=== PATIENT | female | born 2005 | race Two or more races ===

== ENCOUNTER 2024-07-03 17:41 | Inpatient (IN) ==
--- NOTE | 2024-07-03 18:01 | Emergency Department Note ---
Impression & Plan Suicidal ideation, Depression ED Provider Note NAME: ROMI ADAIR AGE: 18 SEX: F : 2005 ARRIVES VIA: [employer] INFORMANT: Patient ED PROVIDER(S): Mason Huynh DO CHIEF COMPLAINT: SI HPI: Patient is a 18-year-old female who presents the ER from [facility] for suicidal ideations. She notes that since the age of [age] she does have passive suicidal thoughts nearly daily. 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 She notes that she thinks of this when she becomes stressed out. She denies any auditory or visual hallucinations. She has not been going to classes for the past month that she cannot make her self go. She has been falling behind in all of her schoolwork. She denies any chest pain or shortness of breath. No dysuria, urgency, or frequency. No other exacerbating or remitting factors. ADDITIONAL HISTORY OBTAINED: Per HPI Chronic Medical/Social Conditions Affecting Care: Per HPI PAST MEDICAL HISTORY:See Below PAST SURGICAL HISTORY:See Below FAMILY HISTORY:See Below SOCIAL HISTORY:See Below HOME MEDICATIONS:See Below ALLERGIES:See Below VITALS:See Below PHYSICAL EXAMINATION: GENERAL: Sitting up in bed, alert, well appearing, well nourished, no distress, non-toxic EYE EXAM: normal conjunctiva. PERRL and EOM's grossly intact. OROPHARYNX: no exudate, no erythema, lips, buccal mucosa, and tongue normal and mucous membranes are moist NECK: supple, no nuchal rigidity, no adenopathy, non-tender LUNGS: Clear to auscultation. Normal chest wall mechanics HEART: no murmurs, S1 normal and S2 normal ABDOMEN: abdomen soft, non-tender, normo-active bowel sounds, no masses, no rebound or guarding. UPPER EXTREMITIES: upper extremities are grossly normal. LOWER EXTREMITIES: No pitting edema. NEURO EXAM: Normal sensorium, cranial nerves II-XII grossly intact, normal speech, no gross weakness of arms, no gross weakness of legs. PSYCH: Patient admits to passive suicidal thoughts with intermittent plans. Denies any auditory visual hallucinations. MEDICAL DECISION MAKING: Patient is a 18-year-old female who presents ER for suicidal ideations. Labs were obtained and showed no significant leukocytosis or anemia. BMP along LFTs bilirubin is unremarkable. TSH unremarkable. UA was clean. negative. Viral panel was negative. Alcohol negative. COVID-negative. Discussed with our psychiatric personal care aid. Referrals made to 3 S. Patient was accepted and admitted on the [facility]-3 S. for suicidal ideations. Consults/Care Managements Discussions: Per MDM Triage Nursing notes reviewed. Limited review of prior medical records performed Vital Signs: reviewed and remarkable for no significant abnormalities Differential diagnosis: Mood disorder, infection, hypoglycemia, electrolyte abnormalities, cardiac sources, intracerebral event, toxicologic, trauma, neurologic, as well as other pathologies. ER treatment provided: See below Diagnostics interpreted by me include EKG and cardiac monitoring as listed below: -ECG: none -Laboratory studies:Interpreted by me as stated above in MDM and shown below. Imaging studies: Xrays: As interpreted by me:none CTs show: none Procedures:none Critical Care: None Past Med/Surg History Problem List (Updated 07/03/24 @ 23:25 by Mason Huynh DO) Depression (Acute) Suicidal ideation (Acute) Social History Smoking Status: Never smoker Hx Alcohol Use: Yes Hx Substance Use: Yes Preferred Language: [place] Communication Ability: Effective Electrician Outside Required: No Beliefs That Will Affect Care: None Feels Safe at Home: Yes Gender Identity: Nonbinary Assistive Devices: None Allergies Allergies Allergy/AdvReac Type Severity Reaction Status Date / Time No Known Allergies Allergy Unverified 04/17/22 20:13 Home Meds Home Medications Medication Instructions Recorded Confirmed sertraline 100 mg tablet 100 mg PO 1XD 07/03/24 07/03/24 Results & Data (ED) Vital Signs Vital Signs - 24 hr 07/03/24 17:43 07/03/24 17:46 07/03/24 19:03 Temperature 36.9 C Temperature Source Oral Pulse Rate [Right Finger] 90 70 Pulse Rhythm [Right Finger] Regular Pulse Strength [Right Finger] Normal Respiratory Rate 18 16 Respiratory Effort / Characteristics Non-Labored Spontaneous Non-Labored Spontaneous Respiratory Depth Normal Normal Respiratory Pattern Regular Regular Blood Pressure [Right Arm] 104/69 110/72 Blood Pressure Mean [Right Arm] 80 84 Blood Pressure Position [Right Arm] Lying Pulse Oximetry 95 99 Oxygen Delivery Method Room Air Room Air Sepsis Recent Fever Within 48 Hours No Sepsis New/Unexplained Change in Mental Status No Sepsis Action Taken by Nursing No Action Required Laboratory Data 07/03/24 17:50 07/03/24 17:50 Lab Results 07/03/24 07/03/24 07/03/24 Range/Units 17:50 17:51 18:03 WBC 5.37 (4.8-10.8) K/ul RBC 5.48 H (4.20-5.40) M/uL Hgb 14.9 (12.0-16.0) g/dl Hct 45.4 (37.0-47.0) % MCV 82.8 (80.0-100.0) fL MCH 27.2 (25.0-34.0) pg MCHC 32.8 (32.0-36.0) g/dL RDW Std Deviation 40.0 (36.4-46.3) fL RDW Coeff of Fern 13.2 (11.5-14.5) % Plt Count 336 (130-400) K/uL MPV 9.7 (9.4-12.4) fL Immature Gran % (Auto) 0.2 % Neut % (Auto) 55.9 % Lymph % (Auto) 30.4 % [place] % (Auto) 6.1 % Eos % (Auto) 6.3 % Baso % (Auto) 1.1 % Neut # (Auto) 3.00 (1.40-6.50) K/uL Lymph # (Auto) 1.63 (1.20-3.40) K/uL [place] # (Auto) 0.33 (0.11-0.59) K/uL Eos # (Auto) 0.34 (0.00-0.50) K/uL Baso # (Auto) 0.06 (0.00-0.20) K/uL Immature Gran # (Auto) 0.01 (0.01-0.20) K/uL Sodium 138 (136-145) mmol/L Potassium 4.5 (3.5-5.1) mmol/L Chloride 104 (98-107) mmol/L Carbon Dioxide 27 (21-32) mmol/L Anion Gap 7 (3-11) BUN 7 (6-23) mg/dl Creatinine 0.65 (0.6-1.2) mg/dl Est Cr Clr Drug Dosing 89.1 ml/min eGFR 129.18 BUN/Creatinine Ratio 10.8 (10-20) Glucose 88 (70-99(Fasting)) mg/dl Calcium 10.0 (8.6-10.3) mg/dl Total Bilirubin 0.5 (0.2-1.0) mg/dl AST 18 (13-39) U/L ALT 6 L (7-52) U/L Alkaline Phosphatase 43 (34-104) U/L Total Protein 7.6 (6.0-8.3) gm/dl Albumin 5.2 H (3.4-5.0) gm/dl Globulin 2.4 L (2.5-4.0) gm/dl Albumin/Globulin Ratio 2.2 H (0.9-2) TSH 1.133 (0.300-4.500) uIu/ml Urine Color Yellow Urine Appearance Clear (Clear) Urine pH 8.5 H (4.5-7.5) Ur Specific [place] 1.019 (1.000-1.030) Urine Protein Negative (Negative) Urine Glucose (UA) Negative (Negative) Urine Ketones Trace H (Negative) Urine Blood Negative (Negative) Urine Nitrite Negative (Negative) Urine Bilirubin Negative (Negative) Urine Urobilinogen Negative (Negative) Ur Leukocyte Esterase Negative (Negative) POC Ur Test NEG (NEG) Salicylates < 3.0 L (3.0-30) mg/dl Urine Opiates Screen Neg (Neg) Ur Methadone, Qual Neg (Neg) Urine Fentanyl Screen Neg (Neg) Acetaminophen < 3 L (10-30) ug/ml Urine Barbiturates Neg (Neg) Ur Phencyclidine (PCP) Neg (Neg) U Amphetamin/Meth Scrn Neg (Neg) MDMA (Ecstasy) Screen Neg (Neg) U Benzodiazepines Scrn Neg (Neg) Ur Cocaine Metabolite Neg (Neg) U Marijuana (THC) Screen Neg (Neg) Ethyl Alcohol mg/dL < 10.0 (<10.0) mg/dl SARS-CoV-2, RNA, NAAT NEGATIVE (NEGATIVE) Discharge Plan Visit Data Chief Complaint: Mental Health Evaluation Stated Complaint: 201 ED Provider: Mason Huynh Discharge Problem: Suicidal ideation, Depression Patient Disposition: Admitted As Inpatient Discharge Instructions Interventions: ED Discharge Assessment Last Done: 07/03/24 20:24
[2024-07-03 18:10] LABS: Appearance Urine Clear (Clear); Bilirubin Urine Negative (Negative); Blood Urine Negative (Negative); Color Urine Yellow; Glucose Urine UA Negative (Negative); Ketones Urine Trace (Negative); Leukocyte Esterase Urine Negative (Negative); Nitrite Urine Negative (Negative); Protein Urine Negative (Negative); Specific Gravity Urine 1.019 (1.000-1.030); Urobilinogen Urine Negative (Negative); pH Urine 8.5 (4.5-7.5)
[2024-07-03 18:19] LABS: Basophils # (auto) 0.06 K/uL (0.00-0.20); Basophils % (auto) 1.1 %; Eosinophils # (auto) 0.34 K/uL (0.00-0.50); Eosinophils % (auto) 6.3 %; Hematocrit (blood only) 45.4 % (37.0-47.0); Hemoglobin 14.9 g/dl (12.0-16.0); Immature Granulocytes # (auto) 0.01 K/uL (0.01-0.20); Immature Granulocytes % (auto) 0.2 %; Lymphocytes # (auto) 1.63 K/uL (1.20-3.40); Lymphocytes % (auto) 30.4 %; Mean Corpuscular Hemoglobin 27.2 pg (25.0-34.0); Mean Corpuscular Hgb Conc 32.8 g/dL (32.0-36.0); Mean Corpuscular Volume 82.8 fL (80.0-100.0); Mean Platelet Volume 9.7 fL (9.4-12.4); Monocytes # (auto) 0.33 K/uL (0.11-0.59); Monocytes % (auto) 6.1 %; Neutrophils % (auto) 55.9 %; Platelet Count 336 K/uL (130-400); RDW Coefficient of Variation 13.2 % (11.5-14.5); Red Blood Count 5.48 M/uL (4.20-5.40); White Blood Count 5.37 K/ul (4.8-10.8)
[2024-07-03 18:28] LABS: Acetaminophen < 3 ug/ml (10-30); Salicylate < 3.0 mg/dl (3.0-30)
[2024-07-03 18:34] LABS: Albumin Globulin Ratio 2.2 (0.9-2); Albumin Level 5.2 gm/dl (3.4-5.0); BUN Creatinine Ratio 10.8 (10-20); Bilirubin,Total 0.5 mg/dl (0.2-1.0); Creatinine Clr Calc Pharmacy 89.1 ml/min; Globulin 2.4 gm/dl (2.5-4.0); Potassium 4.5 mmol/L (3.5-5.1); Total Protein 7.6 gm/dl (6.0-8.3)
[2024-07-03 18:49] LABS: Thyroid Stimulating Hormone 1.133 uIu/ml (0.300-4.500)
[2024-07-03 18:50] LABS: Amphetamines+Metham, Urine Neg (Neg); Barbiturates, Urine Neg (Neg); Benzodiazepine, Urine Neg (Neg); Cocaine, Urine Neg (Neg); Fentanyl, Urine Neg (Neg); MDMA (Ecstacy), Urine Neg (Neg); Marijuana, Urine Neg (Neg); Methadone, Urine Neg (Neg); Opiate, Urine Neg (Neg); Phencyclidine, Urine Neg (Neg)
[2024-07-03] MEDS ORDERED: SODIUM CHLORIDE 0.65% NA SOLN 45 ML (OCEAN) PRN (20:43)
[2024-07-03] MEDS ORDERED: ALUMINUM/MAGNESIUM SUSP 30 ML UDC PO PRN (20:43)
[2024-07-03] MEDS ORDERED: BISMUTH SUBSALICYLATE 262 MG CHEW PO PRN (20:43)
[2024-07-03] MEDS ORDERED: MAGNESIUM HYDROXIDE SUSP 30 ML UDC PO PRN (20:43)
[2024-07-03] MEDS ORDERED: hydrOXYzine HCl 25 MG TAB PO PRN (20:43)
[2024-07-04] MEDS: hydrOXYzine HCl 25 MG TAB PO PRN (00:15)
--- NOTE | 2024-07-04 09:43 | History & Physical ---
Date of Service July 04, 2024 Impression / Recommendations Impression ROMI ADAIR is a 18-year-old nonbinary individual (prefers they/them pronouns) and [employer] student who currently lives in alone in an apartment, has a history of ADHD (as a child), depression, anxiety, DID, and was admitted on 07/03/24 20:27 on a 201 voluntary commitment for SI with plan to cut or jump from parking garage. Diagnostically consistent with unspecified depression with differential including MDD with anxious distress vs persistent depressive disorder vs borderline personality disorder in addition to possible OCD, DID and depersonalization/derealization disorder, ADHD by history and possible PTSD. Discussed medication treatment options in detail. Discussed risks, benefits and alternatives. Patient would like to start and consented to clonidine for ADHD and off-label for PTSD and anxiety as well continuing sertraline for depression, anxiety, possible PTSD. Reviewed side effects including but not limited to: GI, DELATORRE, sexual side effects, and counseled on black box warning of potential for em ergence of or increased SI and need to let staff know should this occur or should they feel unsafe. Also discussed importance of seeking emergency care following discharge if this side effect occurs in the future and low BP, syncope with clonidine. MNPR-nonbinary Overall I spent a total of 75 minutes for this admission including review of chart records, review of labwork, direct evaluation of the patient, counseling the patient, ordering medication, risk assessment, discussion with the psychiatric liason RN and documentation in the electronic health record. 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 The patient will participate in group, recreational, and milieu therapies and will be offered additional individual and family sessions as clinically appropriate. -Medications: * Continue sertraline 150mg daily * Start clonidine 0.1mg HS -Symptom questionnaires: * Y-BOCS * Jazmine BPD * Dissociative symptoms scale * KYREE questionnaire Inventory Assets Strengths: supportive relationships, willing to get treatment Needs: safety and stabilization, medication adjustment, additional coping skills, increased outpatient services Suicide Risk Level Suicide Risk Level: High-Moderate (q15 min suicide checks) (depression with SI with plan, feels safe in the hospital and feels able to ask for support if needed) Risk Factors Assessment Do You Have Access To A Gun?: No Health Problems: No Mental Health Diagnoses: Yes Substance Use Disorders: No Previous Attempt: No Previous Psychiatric Hospitalization: No Hopelessness: Yes Protective Factors Assessment Stable Relationships: Yes Supportive Family: No Psychiatric History Identifying Data ROMI ADAIR is a 18-year-old nonbinary individual (prefers they/them pronouns) and [employer] student who currently lives in alone in an apartment, has a history of ADHD (as a child), depression, anxiety, DID, and was admitted on 07/03/24 20:27 on a 201 voluntary commitment for SI with plan to cut or jump from parking garage. Chief Complaint "So I've been dealing with mental unwellness for several years but in the last week I lost complete cognition of where I was and what I was doing". History of Present Illness They present for psychiatric admission for worsening depression and SI with plan of jumping from a parking garage or cutting in the context of multiple psychosocial stressors including academic stress, worrying about parents support, and some from the election. They came to the hospital at the recommendation of their therapist due to worsening mental health symptoms this semester. They report frequent periods of forgetfulness, losing cognition of surroundings, self-isolation, and engaging in maladaptive habits. Symptoms have intensified recently, with increased crying, loss of interest in previously enjoyed activities like drawing, struggles with self-care, feelings of hopelessness, and low energy levels. They describe periods of time of "losing cognition of my surroundings" and often starts self-isolating. They report not attending to self care recently including not showering, not eating regularly, not attending classes (multiple weeks since attending a full day of classes). They endorse depressive symptoms including anhedonia, decreased motivation, self-guilt, helplessness, hopelessness, decreased energy, decreased appetite, and decreased sleep (typically about 5 hours). SI has been occurring passively since a young age (before 13), they recall the thoughts fluctuating at times to become more intense. Recently these thoughts "the intensity have gone much higher and more proactive". They started thinking recently about using a knife or jumping from a parking deck. No rehearsal behaviors to date. They also endorse symptoms of anxiety including avoidance, generalized worries, easily overwhelmed and panic attacks (but less frequently recently which they credit to "I'm more aware of where my symptoms come from so they are stressful but I don't panic". They endorse PTSD symptoms including intrusive memories/flashbacks, avoidance, mood changes-anger/shame/numbness/detachment, hypervigilance "only when there's triggers", emotional lability, and at times night terrors (typically one per month, much less now since moving away from home). References at least 20 personalities as part of DID and finds that they switch more frequently during periods of high stress. They also report derealization and depersonalization symptoms. They also note wondering if they have borderline personality disorder as they have felt at times like they need to manipulate others to help them "understand how I'm feeling" and can be quick to anger. They feel these symptoms worsened after being in a close romantic relationship and they note they think this lead to their thoughts about wanting to self-harm. They are currently prescribed sertraline 150mg daily, has been on this dose for multiple years (maybe within the year had a dose increase). They feel it "does do it's job" but still has other symptoms. Psychiatric ROS notable for no current nor history of symptoms of nola, psychosis. Reports history of self-harm (has not engaged in this within recent m [facility]), some "bad mentalities about my weight" but never restricted nor purged. Past therapist had wondered about OCD. Past Psychiatric History Current Psychiatric Diagnosis: MDD, SAIMA, OCD, PTSD, DID Outpatient Services: Therapist [place] Zapata every other week via teletherapy Psychiatrist Dr. Erika Wolfe Previous Psych Admissions: n/a Do You Have Access To A Gun?: No History of Previous Suicide Attempt: No Past Medication Trials: hx stimulant trials as a kid (Concerta-it did help when younger but also made anxiety worse especially if missed a dose) Past Head Trauma/Neuro History History of Concussion/Seizure: No Allergies Allergy/AdvReac Type Severity Reaction Status Date / Time No Known Allergies Allergy Unverified 04/17/22 20:13 Home Medications Medication Instructions Recorded Confirmed Type sertraline 100 mg tablet 100 mg PO 1XD 07/03/24 07/03/24 History Family History Family History of: Doesn't Know Family Mental Health History Comment: She was adopted doesn't know Alcohol History Hx of Alcohol Use Over the Past 12 Months: No AUDIT Total Score: 0 Smoking Use Have You Smoked or Used Tobacco Products in the Last 30 Days: No Smoking Status: Never smoker Substance History Hx of Prescription Med Misuse Over the Past 12 Months: No Hx of Over the Counter Med Misuse Over the Past 12 Months: No Hx of Inhalent Misuse Over the Past 12 Months: No Hx of Organic Substance Use Over the Past 12 Months: No Hx of Illegal Substances/Street Drug Use Over Past 12 Months: No Problems as a Result of Past Substance Use: None Identified and Loss of Family Support Personal History Living Arrangements: Apartment Highest Grade Completed: Some College Beliefs That Will Affect Care: None Current Legal Problems: No Hx Legal Problems: No Hx Traumatic Life Events: Yes Patient History Social History Smoking Status: Never smoker Hx Alcohol Use: Yes Hx Substance Use: Yes Preferred Language: Argentine Communication Ability: Effective Turf Manager Required: No Beliefs That Will Affect Care: None Feels Safe at Home: Yes Gender Identity: Nonbinary Assistive Devices: None Review of Systems Review of Systems: All systems reviewed & are unremarkable except as noted in HPI & below Physical Exam Psychiatric: Orientation: alert and oriented x 3 Apperance: appropriately dressed and appropriately groomed Eye Contact: good eye contact Motor Behavior: no abnormal motor movements Speech: normal rate/rhythm/volume of speech Affect: + depressed affect Mood: + depressed mood and + anxious mood Thought Process: goal directed thought process Thought Content: reality based without delusions Suicidal Thoughts: denies suicidal plan (none for hospital) and denies suicidal intent; + reports suicidal thoughts (intermittent ) Homicidal Thoughts: denies homicidal thoughts Hallucinations: no auditory hallucinations and no visual hallucinations Cognition: recent memory grossly intact, remote memory grossly intact, attention grossly intact and language grossly intact Estimated Intelligence: consistent with education level Insight: + fair insight Judgment: + limited judgement Vital Signs (Past 24 Hours): Last Vital Signs Temp 36.8 C 07/04/24 06:32 Pulse 82 07/04/24 06:32 Resp 16 07/04/24 06:32 BP 102/68 07/04/24 06:32 Pulse Ox 98 07/04/24 06:32 O2 Del Method Room Air 07/04/24 06:32 Exam Statement: A physical exam was performed in the ED by Dr. Huynh for the purposes of medical clearance. I accept that physical as correct and adequate for the purposes of the inpatient physical exam. Results & Data ([facility]) Laboratory Results Laboratory Results - last 24 hr 07/03/24 07/03/24 07/03/24 17:50 17:51 18:03 WBC 5.37 RBC 5.48 H Hgb 14.9 Hct 45.4 MCV 82.8 MCH 27.2 MCHC 32.8 RDW Std Deviation 40.0 RDW Coeff of Fern 13.2 Plt Count 336 MPV 9.7 Immature Gran % (Auto) 0.2 Neut % (Auto) 55.9 Lymph % (Auto) 30.4 [place] % (Auto) 6.1 Eos % (Auto) 6.3 Baso % (Auto) 1.1 Neut # (Auto) 3.00 Lymph # (Auto) 1.63 [place] # (Auto) 0.33 Eos # (Auto) 0.34 Baso # (Auto) 0.06 Immature Gran # (Auto) 0.01 Sodium 138 Potassium 4.5 Chloride 104 Carbon Dioxide 27 Anion Gap 7 BUN 7 Creatinine 0.65 Est Cr Clr Drug Dosing 89.1 eGFR 129.18 BUN/Creatinine Ratio 10.8 Glucose 88 Calcium 10.0 Total Bilirubin 0.5 AST 18 ALT 6 L Alkaline Phosphatase 43 Total Protein 7.6 Albumin 5.2 H Globulin 2.4 L Albumin/Globulin Ratio 2.2 H TSH 1.133 Urine Color Yellow Urine Appearance Clear Urine pH 8.5 H Ur Specific [place] 1.019 Urine Protein Negative Urine Glucose (UA) Negative Urine Ketones Trace H Urine Blood Negative Urine Nitrite Negative Urine Bilirubin Negative Urine Urobilinogen Negative Ur Leukocyte Esterase Negative POC Ur Test NEG Salicylates < 3.0 L Urine Opiates Screen Neg Ur Methadone, Qual Neg Urine Fentanyl Screen Neg Acetaminophen < 3 L Urine Barbiturates Neg Ur Phencyclidine (PCP) Neg U Amphetamin/Meth Scrn Neg MDMA (Ecstasy) Screen Neg U Benzodiazepines Scrn Neg Ur Cocaine Metabolite Neg U Marijuana (THC) Screen Neg Ethyl Alcohol mg/dL < 10.0 SARS-CoV-2, RNA, NAAT NEGATIVE Current Inpatient Medications Current Inpatient Medications: Current Inpatient Medications Acetaminophen (Acetaminophen 325 Mg Tab) 650 mg PO Q4H PRN PRN Reason: Headache or Minor Fever Stop: 08/02/24 20:42 Al Hydrox/Mg Hydrox/Simethicone (Aluminum/Magnesium Susp 30 Ml Udc) 30 ml PO Q4H PRN PRN Reason: GI Upset Stop: 08/02/24 20:42 Bismuth Subsalicylate (Bismuth Subsalicylate 262 Mg Chew) 2 tab PO Q30M PRN PRN Reason: Loose Stool/Diarrhea Stop: 08/02/24 20:42 Hydroxyzine HCl (Hydroxyzine Hcl 25 Mg Tab) 50 mg PO HSZ PRN PRN Reason: Insomnia Stop: 08/02/24 20:42 Last Admin: 07/04/24 00:15 Dose: 50 mg Hydroxyzine HCl (Hydroxyzine Hcl 25 Mg Tab) 25 mg PO Q4H PRN PRN Reason: Anxiety Stop: 08/02/24 20:42 Magnesium Hydroxide (Magnesium Hydroxide Susp 30 Ml Udc) 30 ml PO DAILY PRN PRN Reason: Constipation Stop: 08/02/24 20:42 Sodium Chloride (Sodium Chloride 0.65% Na Soln 45 Ml ([place])) 1 - 2 sprays NA PRN PRN PRN Reason: Nasal Dryness/Congestion Stop: 08/02/24 20:42
[2024-07-04] MEDS: SERTRALINE HCL 50 MG TABLET PO SCH (12:12)
[2024-07-04] MEDS: cloNIDine HCL 0.1 MG TAB PO SCH (20:32)
--- NOTE | 2024-07-05 09:38 | Psychiatric Progress Note ---
Date of Service July 05, 2024 Impression / Recommendations Impression ROMI ADAIR is a 18-year-old nonbinary individual (prefers they/them pronouns) and [employer] student who currently lives in alone in an apartment, has a history of ADHD (as a child), depression, anxiety, DID, and was admitted on 07/03/24 20:27 on a 201 voluntary commitment for SI with plan to cut or jump from parking garage. Diagnostically consistent with unspecified depression with differential including MDD with anxious distress vs persistent depressive disorder vs borderline personality disorder in addition to OCD, DID and depersonalization/derealization disorder, ADHD by history and possible PTSD. A: Mood improving, felt well supported by call with parents, slept well, still with anxiety. Reviewed symptom questionnaires-positive Jazmine BPD screen, Y- BOCS consistent with OCD but symptoms currently well controlled, symptoms on dissociative scale, KYREE of 2. Provided education and counseling about treatment options and CBT/DBT strategies for mood symptoms and about BPD. Interested in DBT IOP and called with staff support. Reviewed medication options including augmentation with Wellbutrin or Strattera vs increasing sertraline vs alternative depression medications vs no further changes. They prefer to reduce dose of clonidine and make no further changes at this time until seeing how beneficial IOP could be. MNPR-nonbinary Overall, I spent a total of 40 minutes on this case including meeting with the patient, reviewing the chart, nursing report, multidisciplinary team meeting, orders, and documentation. 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 inpatient mental health unit) on q15 min checks (behavioral with suicide precautions) for safety. The patient will participate in group, recreational, and milieu therapies and will be offered additional individual and family sessions as clinically appropriate. -Medications: * Continue sertraline 150mg daily * Start clonidine 0.1mg HS -Symptom questionnaires: * Y-BOCS * Jazmine BPD * Dissociative symptoms scale * KYREE questionnaire Inventory Assets Strengths: supportive relationships, willing to get treatment Needs: safety and stabilization, medication adjustment, additional coping skills, increased outpatient services Suicide Risk Level Suicide Risk Level: Moderate (q15 min suicide checks) (depression with SI with plan prior to admit but SI now lessening, mood improving, feels safe in the hospital and feels able to ask for support if needed) Risk Factors Assessment Do You Have Access To A Gun?: No Health Problems: No Mental Health Diagnoses: Yes Substance Use Disorders: No Previous Attempt: No Previous Psychiatric Hospitalization: No Hopelessness: Yes Protective Factors Assessment Stable Relationships: Yes Supportive Family: No Interval History Identifying Information ROMI ADAIR is a 18-year-old nonbinary individual (prefers they/them pronouns) and [employer] student who currently lives in alone in an apartment, has a history of ADHD (as a child), depression, anxiety, DID, and was admitted on 07/03/24 20:27 on a 201 voluntary commitment for SI with plan to cut or jump from parking garage. Chief Complaint "I'm doing a little better, I had a conversation with my parents". Review of Systems Sleep Information Total Hours of Sleep: 7.45 Sleep Comments: HS Clonidine Meal Information Percent Meal Consumed - Breakfast: 90 Percent Meal Consumed - Lunch: 90 Percent Meal Consumed - Dinner: 50 Subjective Subjective Patient was seen & assessed and interval progress reviewed with treatment team nursing and social work. They ended up speaking with their parents on the phone yesterday evening. They are planning to have a family meeting later this week with their parents. [place] their parents were supportive and spoke about wanting to help them. Had some mild dizziness this morning likely due to low BP from clonidine. Discussed this, they feel that anxiety may be a bit less and they felt calm and slept well after taking it last night so want to try a lower dose to see if this lessening BP effects. Reviewed other therapy and medication options. Reviewed symptom checklists. Still with a lot of anxiety. Physical Exam Psychiatric Orientation: alert and oriented x 3 Apperance: appropriately dressed and appropriately groomed Eye Contact: good eye contact Motor Behavior: no abnormal motor movements Speech: normal rate/rhythm/volume of speech Affect: + anxious affect Mood: + depressed mood and + anxious mood Thought Process: goal directed thought process Thought Content: reality based without delusions Suicidal Thoughts: denies suicidal plan (none for hospital) and denies suicidal intent; + reports suicidal thoughts (intermittent, less today) Homicidal Thoughts: denies homicidal thoughts Hallucinations: no auditory hallucinations and no visual hallucinations Cognition: recent memory grossly intact, remote memory grossly intact, attention grossly intact and language grossly intact Estimated Intelligence: consistent with education level Insight: + fair insight Judgment: + limited judgement Vital Signs (Past 24 Hours) Last Vital Signs Temp 36.6 C 07/05/24 06:47 Pulse 81 07/05/24 06:47 Resp 16 07/05/24 06:47 BP 83/54 L 07/05/24 06:48 Pulse Ox 99 07/05/24 06:47 O2 Del Method Room Air 07/05/24 06:47 Results & Data ([facility]) Current Inpatient Medications Current Inpatient Medications: Current Inpatient Medications Acetaminophen (Acetaminophen 325 Mg Tab) 650 mg PO Q4H PRN PRN Reason: Headache or Minor Fever Stop: 08/02/24 20:42 Al Hydrox/Mg Hydrox/Simethicone (Aluminum/Magnesium Susp 30 Ml Udc) 30 ml PO Q4H PRN PRN Reason: GI Upset Stop: 08/02/24 20:42 Bismuth Subsalicylate (Bismuth Subsalicylate 262 Mg Chew) 2 tab PO Q30M PRN PRN Reason: Loose Stool/Diarrhea Stop: 08/02/24 20:42 Clonidine HCl (Clonidine Hcl 0.1 Mg Tab) 0.1 mg PO HS JOSE Stop: 08/03/24 21:59 Last Admin: 07/04/24 20:32 Dose: 0.1 mg Hydroxyzine HCl (Hydroxyzine Hcl 25 Mg Tab) 50 mg PO HSZ PRN PRN Reason: Insomnia Stop: 08/02/24 20:42 Last Admin: 07/04/24 00:15 Dose: 50 mg Hydroxyzine HCl (Hydroxyzine Hcl 25 Mg Tab) 25 mg PO Q4H PRN PRN Reason: Anxiety Stop: 08/02/24 20:42 Magnesium Hydroxide (Magnesium Hydroxide Susp 30 Ml Udc) 30 ml PO DAILY PRN PRN Reason: Constipation Stop: 08/02/24 20:42 Sertraline HCl (Sertraline Hcl 50 Mg Tablet) 150 mg PO DAILY JOSE Stop: 08/03/24 11:29 Last Admin: 07/05/24 08:53 Dose: 150 mg Sodium Chloride (Sodium Chloride 0.65% Na Soln 45 Ml ([place])) 1 - 2 sprays NA PRN PRN PRN Reason: Nasal Dryness/Congestion Stop: 08/02/24 20:42 Mental Health & Subst Abuse Tx Psychiatrist Name of Psychiatrist: MIESHA Álvarez in [place], [place] Psychiatrist's Therapist Name of Therapist: Anette Zapata LPC in [facility] Consumer Banker Name of Consumer Banker: SCARLETT Post Discharge Appointments Primary Care Physician Name Of Family Doctor/PCP: [facility] Date of Future Appointment with PCP: NA
[2024-07-05] MEDS: cloNIDine HCL 0.1 MG TAB PO SCH (21:59)
--- NOTE | 2024-07-06 08:33 | Psychiatric Progress Note ---
Date of Service July 06, 2024 Impression / Recommendations Impression ROMI ADAIR is a 18-year-old nonbinary individual (prefers they/them pronouns) and [employer] student who currently lives in alone in an apartment, has a history of ADHD (as a child), depression, anxiety, DID, and was admitted on 07/03/24 20:27 on a 201 voluntary commitment for SI with plan to cut or jump from parking garage. Diagnostically consistent with unspecified depression with differential including MDD with anxious distress vs persistent depressive disorder vs borderline personality disorder in addition to OCD, DID and depersonalization/derealization disorder, ADHD by history and possible PTSD. A: Mood continues to improve, denying SI, motivated for IOP. Even on lower dose of clonidine had low BP this morning but denies any significant symptoms. Reviewed risks/benefits of medication vs low BP and they would like to continue with clonidine at lowest dose for time being. Reviewed symptoms of concern with low BP to monitor for and if these occurred recommended they stop clonidine immediately which they express understanding of and are agreeable to. MNPR-nonbinary Overall, I spent a total of 35 minutes on this case including meeting with the patient, reviewing the chart, nursing report, multidisciplinary team meeting, orders, and documentation. (1) Depression: (2) Suicidal ideation: (3) SAIMA (generalized anxiety disorder): (4) ADHD (attention deficit hyperactivity disorder): (5) Dissociative identity disorder: (6) Depersonalization-derealization disorder: (7) Trauma and stressor-related disorder: Plan 07/06/2024: Continue current medications and tx plan. Plan for support meeting and IOP intake process tomorrow. 07/05/2024: -Reduce clonidine to 0.05 mg HS -Working on IOP referral 07/04/2024: The patient was admitted to the [facility] ([facility] mental health unit) on q15 min checks (behavioral with suicide precautions) for safety. The patient will participate in group, recreational, and milieu therapies and will be offered additional individual and family sessions as clinically appropriate. -Medications: * Continue sertraline 150mg daily * Start clonidine 0.1mg HS -Symptom questionnaires: * Y-BOCS * Jazmine BPD * Dissociative symptoms scale * KYREE questionnaire Inventory Assets Strengths: supportive relationships, willing to get treatment Needs: safety and stabilization, medication adjustment, additional coping skills, increased outpatient services Suicide Risk Level Suicide Risk Level: Moderate (q15 min suicide checks) (depression with SI with plan prior to admit but now denies SI, mood improving, feels safe in the hospital and feels able to ask for support if needed) Risk Factors Assessment Do You Have Access To A Gun?: No Health Problems: No Mental Health Diagnoses: Yes Substance Use Disorders: No Previous Attempt: No Previous Psychiatric Hospitalization: No Hopelessness: Yes Protective Factors Assessment Stable Relationships: Yes Supportive Family: No Interval History Identifying Information ROMI ADAIR is a 18-year-old nonbinary individual (prefers they/them pronouns) and [employer] student who currently lives in alone in an apartment, has a history of ADHD (as a child), depression, anxiety, DID, and was admitted on 07/03/24 20:27 on a 201 voluntary commitment for SI with plan to cut or jump from parking garage. Chief Complaint "Doing alright". Review of Systems Sleep Information Total Hours of Sleep: 7.30 Sleep Comments: HS Clonidine Meal Information Percent Meal Consumed - Breakfast: 75 Percent Meal Consumed - Lunch: 90 Percent Meal Consumed - Dinner: 100 Subjective Subjective Patient was seen & assessed and interval progress reviewed with treatment team nursing and social work. Had some dizziness yesterday, this morning BP low but not orthostatic. Attending groups, interactive with peers. Reported mood last evening as "hopeful/anxious". Today reports mood as "doing alright", was sad to see a few peers leave this morning but mood has improved this afternoon with activities and groups. Looking forward to learning more skills for emotional regulation in IOP program. Denies SI. Reviewed BP was low this morning even on lower dose of clonidine. They report brief episode of dizziness this morning but none since. They would like to continue with clonidine, even with risk of low BP and dizziness, given they feel it is helping them feel "calm" and they agree to stop clonidine in the future if dizziness worsens or they feel weak, faint, changes in tsang rate/breathing or confusion. Physical Exam Psychiatric Orientation: alert and oriented x 3 Apperance: appropriately dressed and appropriately groomed Eye Contact: good eye contact Motor Behavior: no abnormal motor movements Speech: normal rate/rhythm/volume of speech Affect: euthymic affect Mood: + anxious mood Thought Process: goal directed thought process Thought Content: reality based without delusions Suicidal Thoughts: denies suicidal thoughts, denies suicidal plan and denies suicidal intent Homicidal Thoughts: denies homicidal thoughts Hallucinations: no auditory hallucinations and no visual hallucinations Cognition: recent memory grossly intact, remote memory grossly intact, attention grossly intact and language grossly intact Estimated Intelligence: consistent with education level Insight: + fair insight Judgment: + fair judgement Vital Signs (Past 24 Hours) Last Vital Signs Temp 36.6 C 07/06/24 06:47 Pulse 80 07/06/24 06:49 Resp 18 07/06/24 06:47 BP 84/54 L 07/06/24 06:49 Pulse Ox 100 07/06/24 06:47 O2 Del Method Room Air 07/06/24 06:47 Results & Data ([facility]) Current Inpatient Medications Current Inpatient Medications: Current Inpatient Medications Acetaminophen (Acetaminophen 325 Mg Tab) 650 mg PO Q4H PRN PRN Reason: Headache or Minor Fever Stop: 08/02/24 20:42 Al Hydrox/Mg Hydrox/Simethicone (Aluminum/Magnesium Susp 30 Ml Udc) 30 ml PO Q4H PRN PRN Reason: GI Upset Stop: 08/02/24 20:42 Bismuth Subsalicylate (Bismuth Subsalicylate 262 Mg Chew) 2 tab PO Q30M PRN PRN Reason: Loose Stool/Diarrhea Stop: 08/02/24 20:42 Clonidine HCl (Clonidine Hcl 0.1 Mg Tab) 0.05 mg PO HS JOSE Stop: 08/04/24 21:59 Last Admin: 07/05/24 21:59 Dose: 0.05 mg Hydroxyzine HCl (Hydroxyzine Hcl 25 Mg Tab) 50 mg PO HSZ PRN PRN Reason: Insomnia Stop: 08/02/24 20:42 Last Admin: 07/04/24 00:15 Dose: 50 mg Hydroxyzine HCl (Hydroxyzine Hcl 25 Mg Tab) 25 mg PO Q4H PRN PRN Reason: Anxiety Stop: 08/02/24 20:42 Magnesium Hydroxide (Magnesium Hydroxide Susp 30 Ml Udc) 30 ml PO DAILY PRN PRN Reason: Constipation Stop: 08/02/24 20:42 Sertraline HCl (Sertraline Hcl 50 Mg Tablet) 150 mg PO DAILY JOSE Stop: 08/03/24 11:29 Last Admin: 07/06/24 07:59 Dose: 150 mg Sodium Chloride (Sodium Chloride 0.65% Na Soln 45 Ml ([place])) 1 - 2 sprays NA PRN PRN PRN Reason: Nasal Dryness/Congestion Stop: 08/02/24 20:42 Mental Health & Subst Abuse Tx Psychiatrist Name of Psychiatrist: MIESHA Álvarez in [place], [place] Psychiatrist's Therapist Name of Therapist: Anette Zapata LPC in [facility] [place] Aquatic Instructor Name of Aquatic Instructor: SCARLETT Post Discharge Appointments Primary Care Physician Name Of Family Doctor/PCP: [facility] Date of Future Appointment with PCP: SCARLETT Partial or Psych Rehab Name of Partial or Psych Rehab: [facility] Phone Number of Partial or Psych Rehab: [phone] Date of Appointment at Partial or Psych Rehab: 07/07/24 Time of Appointment at Partial or Psych Rehab: 12:00 noon Partial or Psych Rehab Appointment Comment: Intake via zoom. They will send a link via email
[2024-07-06] MEDS: ACETAMINOPHEN 325 MG TAB PO PRN (11:50)
--- NOTE | 2024-07-07 12:03 | Discharge Summary ---
Date of Service July 07, 2024 History of Present Illness They present for psychiatric admission for worsening depression and SI with plan of jumping from a parking garage or cutting in the context of multiple psychosocial stressors including academic stress, worrying about parents support, and some from the election. They came to the hospital at the recommendation of their therapist due to worsening mental health symptoms this semester. They report frequent periods of forgetfulness, losing cognition of surroundings, self-isolation, and engaging in maladaptive habits. Symptoms have intensified recently, with increased crying, loss of interest in previously enjoyed activities like drawing, struggles with self-care, feelings of hopelessness, and low energy levels. They describe periods of time of "losing cognition of my surroundings" and often starts self-isolating. They report not attending to self care recently including not showering, not eating regularly, not attending classes (multiple weeks since attending a full day of classes). They endorse depressive symptoms including anhedonia, decreased motivation, self-guilt, helplessness, hopelessness, decreased energy, decreased appetite, and decreased sleep (typically about 5 hours). SI has been occurring passively since a young age (before 13), they recall the thoughts fluctuating at times to become more intense. Recently these thoughts "the intensity have gone much higher and more proactive". They started thinking recently about using a knife or jumping from a parking deck. No rehearsal behaviors to date. They also endorse symptoms of anxiety including avoidance, generalized worries, easily overwhelmed and panic attacks (but less frequently recently which they credit to "I'm more aware of where my symptoms come from so they are stressful but I don't panic". They endorse PTSD symptoms including intrusive memories/flashbacks, avoidance, mood changes-anger/shame/numbness/detachment, hypervigilance "only when there's triggers", emotional lability, and at times night terrors (typically one per month, much less now since moving away from home). References at least 20 personalities as part of DID and finds that they switch more frequently during periods of high stress. They also report derealization and depersonalization symptoms. They also note wondering if they have borderline personality disorder as they have felt at times like they need to manipulate others to help them "understand how I'm feeling" and can be quick to anger. They feel these symptoms worsened after being in a close romantic relationship and they note they think this lead to their thoughts about wanting to self-harm. They are currently prescribed sertraline 150mg daily, has been on this dose for multiple years (maybe within the year had a dose increase). They feel it "does do it's job" but still has other symptoms. Psychiatric ROS notable for no current nor history of symptoms of nola, psychosis. Reports history of self-harm (has not engaged in this within recent months), some "bad mentalities about my weight" but never restricted nor purged. Past therapist had wondered about OCD. Physical Exam Vital Signs (Past 24 Hours) Last Vital Signs Temp 36.7 C 07/07/24 06:41 Pulse 103 H 07/07/24 11:25 Resp 16 07/07/24 06:41 BP 93/64 L 07/07/24 11:25 Pulse Ox 100 07/06/24 06:47 O2 Del Method Room Air 07/06/24 06:47 Principal Diagnosis Unspecified Depressive Disorder Psychiatric Data See daily stay summary. In short, patient was engaged with the social/therapeutic milieu of the unit, safety was maintained and the patient was cooperative with care. Medication changes included initiation of clonidine 0.05 mg HS po for ADHD and off-label for anxiety and they tolerated this well. Their blood pressure was low at times in the morning but they felt the clonidine was offering benefit for anxiety. Reviewed risks/benefits and they are willing to continue to monitor their blood pressure after discharge and will discontinue if blood pressure drops and/or dizziness doesn't improve, worsens or they develop any other concerning symptoms including but not limited to feeling faint, syncope, chest pain, heart palpitations, somnolence, or confusion. Discussed option in future for guanfacine trial if they become unable to tolerate side effects of clonidine and/or increase of sertraline dose. A support session was held and safety plan was completed prior to discharge. They participated in safety planning and in discussions about ways to seek support and recognizing warning signs and utilizing coping skills. Reviewed ways to have their safety plan and contacts easily available should thoughts of SI re-emerge in the future. Reviewed importance of seeking emergency care should SI intensify, worsen or should they feel unsafe in the future which they agree to do. On the day of discharge they stated their mood was "good" and remained future-oriented including returning to classes, seeing their boyfriend and engaging in aftercare appointments for [facility] and [employer] student care and advocacy. Day of Discharge Assessment Today the patient voices readiness for discharge. They note improvement in mood and anxiety. They deny thoughts of harm to self or others. Thoughts are organized and they are clinically improved from admission. There is no evidence of psychosis. They improved in the hospital with support and medication adjustments. They agree to take medications as prescribed and keep follow-up appointments. At the time of the discharge they are deemed to be stable and appropriate for outpatient level of care. They are not deemed to be at imminent risk of harm to self or others. They are aware of emergency and crisis services. Knows to call 911 or go to nearest emergency care center if in a crisis which cannot be handled as an outpatient. Suicide risk assessment: Acute risk is low given improvement in mood and denial of SI, lack of access to lethal means, lessening of anxiety, hopefulness and feeling more connected to their parents. Chronic risk is moderate given some non-modifiable risk factors: psychiatric co-morbid diagnoses, periods of impulsivity, hx self-harm, emotional reactivity, prior psychiatric hospitalization, cluster B personality disorder, childhood trauma, but also with protective factors including: student, good social support, sense of responsibility to family and social supports, outpat ient care in place, positive coping skills, positive problem solving, willingness to engage with treatment and self-observation. Counseled on ways to reduce acute and chronic risk including engaging with outpatient providers, using safety plan if needed, utilizing supports, taking medication, and using coping skills. Modifiable risk factors of SI and depression were addressed during hospitalization through development of new coping skills, support meeting, safety planning, and medication adjustments. Discharge physical exam: See admission H&P, MSE per above and day of discharge summary. Overall, I spent a total of 35 minutes on this case including meeting with the patient, reviewing the chart, nursing report, multidisciplinary team meeting, discharge orders, anticipatory planning, safety planning, risk assessment and documentation. Transition of Care Transition Of Care Record: was reviewed with the patient Advance Directives Advance Directives Information Provided: No Advance Directives: No Mental Health Advance Directive: No Advance Directives on File: No Living Will: No Power of Supervisor [employer] Department: No Advance Directives Reason:: Declines as Mental Health Visit. Suicide Risk Level Suicide Risk Level Comments: Acute risk is low, see assessment above Risk Factors Assessment Do You Have Access To A Gun?: No Health Problems: No Mental Health Diagnoses: Yes Substance Use Disorders: No Previous Attempt: No Previous Psychiatric Hospitalization: No Hopelessness: No Protective Factors Assessment Employed: Yes (student) Stable Relationships: Yes Supportive Family: Yes Discharge Data Lab Results 07/03/24 07/03/24 07/03/24 17:50 17:51 18:03 WBC 5.37 RBC 5.48 H Hgb 14.9 Hct 45.4 MCV 82.8 MCH 27.2 MCHC 32.8 RDW Std Deviation 40.0 RDW Coeff of Fern 13.2 Plt Count 336 MPV 9.7 Immature Gran % (Auto) 0.2 Neut % (Auto) 55.9 Lymph % (Auto) 30.4 [place] % (Auto) 6.1 Eos % (Auto) 6.3 Baso % (Auto) 1.1 Neut # (Auto) 3.00 Lymph # (Auto) 1.63 [place] # (Auto) 0.33 Eos # (Auto) 0.34 Baso # (Auto) 0.06 Immature Gran # (Auto) 0.01 Sodium 138 Potassium 4.5 Chloride 104 Carbon Dioxide 27 Anion Gap 7 BUN 7 Creatinine 0.65 Est Cr Clr Drug Dosing 89.1 eGFR 129.18 BUN/Creatinine Ratio 10.8 Glucose 88 Calcium 10.0 Total Bilirubin 0.5 AST 18 ALT 6 L Alkaline Phosphatase 43 Total Protein 7.6 Albumin 5.2 H Globulin 2.4 L Albumin/Globulin Ratio 2.2 H TSH 1.133 Urine Color Yellow Urine Appearance Clear Urine pH 8.5 H Ur Specific [place] 1.019 Urine Protein Negative Urine Glucose (UA) Negative Urine Ketones Trace H Urine Blood Negative Urine Nitrite Negative Urine Bilirubin Negative Urine Urobilinogen Negative Ur Leukocyte Esterase Negative POC Ur Test NEG Salicylates < 3.0 L Urine Opiates Screen Neg Ur Methadone, Qual Neg Urine Fentanyl Screen Neg Acetaminophen < 3 L Urine Barbiturates Neg Ur Phencyclidine (PCP) Neg U Amphetamin/Meth Scrn Neg MDMA (Ecstasy) Screen Neg U Benzodiazepines Scrn Neg Ur Cocaine Metabolite Neg U Marijuana (THC) Screen Neg Ethyl Alcohol mg/dL < 10.0 SARS-CoV-2, RNA, NAAT NEGATIVE Hospital Course (1) Depression: (2) Suicidal ideation: (3) SAIMA (generalized anxiety disorder): (4) ADHD (attention deficit hyperactivity disorder): (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 07/06/2024: Continue current medications and tx plan. Plan for support meeting and IOP intake process tomorrow. 07/05/2024: -Reduce clonidine to 0.05 mg HS -Working on IOP referral 07/04/2024: The patient was admitted to the [facility] ([facility] unit) on q15 min checks (behavioral with suicide precautions) for safety. The patient will participate in group, recreational, and milieu therapies and will be offered additional individual and family sessions as clinically appropriate. -Medications: * Continue sertraline 150mg daily * Start clonidine 0.1mg HS -Symptom questionnaires: * Y-BOCS * Jazmine BPD * Dissociative symptoms scale * KYREE questionnaire Mental Health & Subst Abuse Tx Psychiatrist Name of Psychiatrist: MIESHA Burrell in [place], [place] Psychiatrist's Date Of Appointment With Psychiatric Provider: 07/27/2024 Time of Appointment with Psychiatrist: 4:30PM Psychiatric Appointment Comment: Virtual Appointment Therapist Name of Therapist: Anette Zapata LPC in [facility] Therapist's Therapy Appointment Comment: Pt will schedule appt. after [facility] IOP; discussed with therapist Periodicals Library Assistant Name of Periodicals Library Assistant: NA Post Discharge Appointments Primary Care Physician Name Of Family Doctor/PCP: [facility] Date of Future Appointment with PCP: NA Partial or Psych Rehab Name of Partial or Psych Rehab: [facility] Phone Number of Partial or Psych Rehab: [phone] Date of Appointment at Partial or Psych Rehab: 07/07/24 Time of Appointment at Partial or Psych Rehab: 12:00 noon Partial or Psych Rehab Appointment Comment: Intake via zoom. They will send a link via email Other #1: Name of Aftercare Appointment: Student Care and Advocacy - [facility] post hospitalization meeting Phone Number of Aftercare Appointment: [phone] Date of Aftercare Appointment: 07/10/24 Time of Aftercare Appointment: 2PM Aftercare Appointment Comment: Zoom link will be sent to your [facility] email Discharge Plan Discharge Items Patient Disposition: Home - Self-Care Reason For Visit: MAJOR DEPRESSIVE DISORDER Discharge Diagnosis: Unspecified Depressive Disorder Activity: Resume your previous activity Non-emergency contact: Primary Care Provider, Psychiatrist and Therapist Call non-emergency contact if: you have any medication questions and your symptoms worsen Follow-up/Referrals: PCP,NO [Primary Care Provider] - Diet: Regular Addtl Attending Provider Instructions: Optional mobile apps: -Suicide safety plan -Virtual Hope Box SPECIAL CARE INSTRUCTIONS: 1. Follow through with your scheduled aftercare appointments. If unable to keep an appointment, please call to reschedule. 2. Take your medication only as prescribed. Medication should not be changed or stopped without the approval of your doctor. In the event of worsening symptoms or concerns about side effects, contact your doctor immediately. 3. Utilize new healthy coping skills, anger management skills, and stress management skills learned during your hospitalization. Journal feelings and process them with a support person. Identify stressors or situations that may result in relapse, deterioration or inappropriate behaviors and develop a plan to deal with those issues. 4. If your coping skills are ineffective and you are in crisis, contact your outpatient providers for direction. If unable to reach your providers, please call the [facility] CRISIS LINE AT , go to the [facility] walk-in center at [address] [place] [address], [facility], [place], or go to the closest Emergency Room. 5. Avoid alcohol and un-prescribed drugs. 6. You have been provided with the Mental Health Advance Directives Pamphlet for your review. 7. Your condition is stable for discharge to outpatient level of care, but recovery is an ongoing process. Ifthoughts to harm yourself or others return, follow the safety plan developed during your stay. Planning for a safe return home includes securing weapons. Our treatment team recommends weaponsbe removed from the home until your outpatient provider reassesses your progress. In rare cases where the items themselvescannot be removed, guns and ammunitionshould be secured separatelyand keys stored by a reliable personoutside of the home. If you were admitted on an involuntary commitment, the police or other legal authorities may be involved in this process. AFTERCARE APPOINTMENTS: * Please call your insurance company prior to your scheduled appointment to confirm your aftercare providers are covered. Take your insurance information to your appointments. WHO TO CALL AND WHEN: Medical Emergencies: For questions or emergencies related to your hospital stay, please contact the Inpatient Behavioral Health Unit at [phone]. A salon receptionist is on-call 18/03 for the Behavioral Health Unit for emergencies At any time you feel your situation is an emergency, you may also call 911 immediately. National Crisis Hotline: 98 Pending Studies at Discharge: No Stand-Alone Forms: [facility] Medications and DC Order Prescriptions: New clonidine HCl 0.1 mg Tablet 0.05 mg PO HS 30 Days Qty: 15 0RF sertraline 150 mg capsule 150 mg PO DAILY 30 Days Qty: 30 0RF Discontinued sertraline 100 mg tablet 100 mg PO 1XD Discharge Orders: Discharge Order (Routine); Ordered 07/07/24 Ordered By: Lolis Hanks Admission Data Admit Date/Time: 07/03/24 20:27 Attending Provider: Lolis Hanks Admit Provider: Lolis Hanks Primary Care Provider: PCP,NO Other Interventions: Discharge Summary Assessment (RN) Last Done: 07/07/24 12:11 PSY Interdisciplinary Discharge Planning Last Done: 07/06/24 18:59 Coding Level of Care Code 27710 D/C day mgmt > 30 min Diagnoses Depression F32.A Suicidal ideation R45.851 SAIMA (generalized anxiety disorder) F41.1 ADHD (attention deficit hyperactivity disorder) F90.9 Dissociative identity disorder F44.81 Depersonalization-derealization disorder F48.1 Trauma and stressor-related disorder F43.9
== END 2024-07-07 15:30 | disposition home or self-care (01) | DRG 881 ==
LOC: ED 17:41 → 3S 20:24